=== PATIENT | female | born 1940 | race Caucasian/White ===

== ENCOUNTER 2016-07-10 18:34 | Emergency (ER) | payer MEDICARE ==
[~2016-07-10] VITALS: Ht 172.7 cm; Wt 100.0 kg
[~2016-07-10 18:34] MED LIST: AMLO2.5T PO; BECL8.7A6 IH; CYAN500T15 PO; FLUO20CA25 PO; FLUT16SP2 NS; GUAI600T2 PO; HYDR12.5 PO; INSU100I13 SUBQ; INSU100I18 SUBQ; LEVO100T6 PO; METF500T4 PO; OMEP40CA36 PO; RANI300C PO; SIMV20TA4 PO; VITAMIN D3
[2016-07-10 18:41] VITALS: BP 136/69; PULSE 90; RESP 16; O2SAT 96
[2016-07-10 19:06] LABS: BASOPHILS % (AUTO) 0.6 % (0-3); EOSINOPHILS % (AUTO) 6.8 % (0-5); MONOCYTES % (AUTO) 6.6 % (4-12); Mean Corpuscular Hemoglobin 25.6 pg (27.0-35.0); Mean Corpuscular Volume 78.9 fL (81-100); NEUTROPHILS % (AUTO) 56.5 % (40-74); Platelet Count 349 bil/L (150-400)
--- NOTE | 2016-07-10 19:46 | ED.REPORT ---
HPI-GI Bleed Date of Service Jul 10, 2016 ED Provider: Reid Alfaro MD A 75 year old female with a history of DM and anemia presents to the ED from Urgent Care with hematochezia onset 1700 yesterday. The patient has had four episodes of bright red, bloody stool since onset. She also reports lower abdominal pain during bowel movements. The patient normally has one BM per day. She denies other symptoms. Nursing Notes Stated Complaint: RECTAL BLEEDING Chief Complaint: Female Abdominal Pain Nursing Notes Reviewed: Yes Allergies: Coded Allergies: lisinopril (Verified Allergy, Unknown, cough, 07/10/16) Scheduled Amlodipine (Amlodipine) 2.5 Mg Tablet 2.5 MG PO DAILY Beclomethasone Dipropionate (Qvar) 8.7 Gm Aer.w.adap 2 PUFFS IH BID Fluoxetine (Fluoxetine) 20 Mg Capsule 20 MG PO AM Fluticasone Propionate (Flonase Nasal) 16 Gm [place].susp 1 SPRAY NS BID Hydrochlorothiazide (Hydrochlorothiazide) 12.5 Mg Capsule 12.5 MG PO DAILY Insulin Glargine (Lantus U100 Solostar Insulin Pen) 100 Unit/1 Ml Insuln.pen 25 UNIT SUBQ QPM-INSULIN Insulin Lispro (HumaLOG U100 Insulin Pen) 100 Unit/1 Ml Insuln.pen 1 UNIT SUBQ TID-INSULIN Blood Sugar Lispro Correction <151 0 units 151-175 1 unit 176-200 2 units 201-225 3 units 226-250 4 units 251-275 5 units 276-300 6 units 301-325 7 units 326-350 8 units 351-375 9 units 376-400 10 units >400 12 units Check blood sugars before meals and at bedtime. Use correction factor only before meals. Levothyroxine (Levothyroxine) 100 Mcg Tablet 100 MCG PO DAILY Metformin (Metformin) 500 Mg Tablet 500 MG PO BIDWM Omeprazole (Omeprazole) 40 Mg Capsule.dr 40 MG PO DAILY Ranitidine (Ranitidine) 300 Mg Capsule 300 MG PO HS Simvastatin (Simvastatin) 20 Mg Tablet 20 MG PO HS Miscellaneous Medications ([Vitamin D3]) Cyanocobalamin (Vitamin B-12) (B-12 Dots) 500 Mcg Tablet 500 MCG PO Guaifenesin (Mucinex) 600 Mg Tablet.er 600 MG PO General Time Seen by Provider: 19:45 Chief Complaint Chief Complaint: Stool bright red blood Hx Obtained From: Patient Arrived By: Walk-in Onset Occurred: Yesterday Context of Onset: Pain on BM Symptom Duration: Since onset Location: : Abdomen lower Quality: Painful Severity: Current: No pain currently Severity: Maximum: Moderate Associated with: Reports: Abdominal pain Pertinent Negative: Pt denies other symptoms Exacerbated by: Bowel movement Pertinent Negative: Relieved by nothing Immunizations: Unknown Recent Healthcare: Recent doctor visit Past Medical History Past Medical History Diabetes mellitus Anemia Smoking History Unknown if Ever Smoker Ambulatory Status Independent Review of Systems Constitutional: Denies: Fever Respiratory: Denies: Non-productive cough, Shortness of breath GI: Reports: Abdominal pain (Lower), Bloody/tarry stool, Hematochezia (x4), Denies: Vomiting Complete sys rev & neg: except as marked. Physical Exam Initial Vital Signs Vital Signs (First) Date Time Temp Pulse Resp B/P Pulse Ox O2 Delivery O2 Flow Rate FiO2 07/10/16 18:41 36.2 90 16 136/69 96 Room Air Initial VS: Reviewed Head / Eyes: Atraumatic, Normocephalic ENT: Conjunctiva normal, No scleral icterus Skin: Warm, Dry Neurologic: Alert, Oriented, Nonfocal Psychiatric: Mood/affect normal, Behavior normal, Normal thought content General/Constitutional: Awake, Alert Interpretation & Diagnostics Lab Results Interpretation Result Diagram: 07/10/16185407/10/161854 Test 07/10/16 18:55 White Blood Count 12.4th/mm3 (3.8-10.1) Red Blood Count 4.45mil/mm3 (3.90-5.20) Hemoglobin 11.4g/dL (12.0-15.6) Hematocrit 35.1% (35.0-46.0) Mean Corpuscular Volume 78.9fL (81-100) Mean Corpuscular Hemoglobin 25.6pg (27.0-35.0) Mean Corpuscular Hemoglobin Concent 32.5% (32.0-37.0) Red Cell Distribution Width 13.9% (12.3-15.4) Platelet Count 349bil/L (150-400) Neutrophils (%) (Auto) 56.5% (40-74) Lymphocytes (%) (Auto) 29.1% (14-46) Monocytes (%) (Auto) 6.6% (4-12) Eosinophils (%) (Auto) 6.8% (0-5) Basophils (%) (Auto) 0.6% (0-3) Sodium Level 134mEq/L (134-144) Potassium Level 4.4mEq/L (3.5-5.2) Chloride Level 97mEq/L (97-108) Carbon Dioxide Level 21mmol/L (18-29) Blood Urea Nitrogen 11mg/dL (8-27) Creatinine 1.00mg/dL (0.57-1.00) Estimat Glomerular Filtration Rate 77mL/min (>59) Glucose Level 152mg/dL (60-99) Calcium Level 9.8mg/dL (8.5-10.1) Total Bilirubin 0.3mg/dL (0.0-1.2) Aspartate Amino Transf (AST/SGOT) 24U/L (0-50) Alanine Aminotransferase (ALT/SGPT) 26U/L (0-32) Alkaline Phosphatase 91U/L (25-165) Total Protein 7.4g/dL (6.4-8.4) Albumin 4.0g/dL (3.4-5.0) Hold [place]onel Top Tube Received (Received) Re-Eval/Medical Decision Med Decision/Clinical Course Well appearing with report of minor lower GI bleeding. Normal VS, essentially normal hemoglobin and hematocrit. Left department prior to compeltion of evaluation. Source of Hx: Old records Re-Evaluation/Progress : Time of Eval: 21:26 Re-Evaluation/Progress Note: Patient left AMA while I was involved with a critical patient. Discharge & Departure Impression: Primary Impression: Rectal bleeding Disposition: AGAINST MEDICAL ADVICE Discharge Condition All VS Reviewed: Yes Referrals: Juanita Falk MD (PCP) Adalidibperez Attestation Portions of this note were transcribed by Yamila Rojas. I, Dr. Alfaro, personally performed the history, physical exam, and medical decision-making; I reviewed and confirmed the accuracy of the information in the transcribed note. Signed by: Marvel Arana, 07/10/2016, 21:55 copies to: Juanita Falk MD, Donald L MD Jul 10, 2016 19:46 YAMILA ROJAS Jul 10, 2016 19:50
[2016-09-01] MEDS ORDERED: CHOL5000 PO (08:35)
[2016-09-01] MEDS ORDERED: GLIP5POW MC (08:35)
[2016-09-01] MEDS ORDERED: METO25TA3 PO (08:35)
[2016-09-01] MEDS ORDERED: LEVO112T4 PO (08:35)
[2016-09-01] MEDS ORDERED: ALBU90AE IH (08:35)
[2016-09-01] MEDS ORDERED: CYAN500T53 SL (08:35)
[2016-09-01] MEDS ORDERED: FLUT10.62 IH (08:35)
[2016-09-01] MEDS ORDERED: FLUT9.9S NS (08:35)
[2016-09-01] MEDS ORDERED: PROM25TA14 PO (08:35)
== END 2016-07-10 21:25 | disposition left against medical advice (07) ==
LOC: SED 18:34
DX: K62.5 Hemorrhage of anus and rectum (principal); E11.9 Type 2 diabetes mellitus without complications; Z79.4 Long term (current) use of insulin; Z79.84 Long term (current) use of oral hypoglycemic drugs; Z88.8 Allergy status to other drugs, medicaments and biological substances

== ENCOUNTER 2016-07-13 17:27 | Emergency (ER) | payer MEDICARE ==
[~2016-07-13] VITALS: Ht 172.7 cm; Wt 100.0 kg
[2016-07-13 17:30] VITALS: BP 155/77; PULSE 88; RESP 15; O2SAT 96
--- NOTE | 2016-07-13 18:13 | ED.REPORT ---
HPI-GI Bleed Date of Service Jul 13, 2016 ED Provider: Dr. Reid Alfaro M.D. A 75 year old female with a history of DM, anemia, and polyps of the stomach and colon presents to the ED with hematochezia onset four days ago. The patient had several episodes of bright red, bloody stool at onset but has not had similar bleeding for three days. Associated symptoms include nausea and lightheadedness currently. The patient denies abdominal pain or other symptoms. She was seen in the ED three days ago with these symptoms but left AMA without a complete evaluation. The patient was then seen by her PCP today, who found guaiac positive stool present on rectal exam and referred her to the ED. The patient denies alcohol use or previous abdominal surgeries. She has recently been taking Aleve x2 every "couple of days" for back pain. Nursing Notes Stated Complaint: RECTAL BLEEDING Chief Complaint: Female Abdominal Pain Nursing Notes Reviewed: Yes Allergies: Coded Allergies: lisinopril (Verified Allergy, Unknown, cough, 07/10/16) Scheduled Amlodipine (Amlodipine) 2.5 Mg Tablet 2.5 MG PO DAILY Beclomethasone Dipropionate (Qvar) 8.7 Gm Aer.w.adap 2 PUFFS IH BID Fluoxetine (Fluoxetine) 20 Mg Capsule 20 MG PO AM Fluticasone Propionate (Flonase Nasal) 16 Gm [place].susp 1 SPRAY NS BID Hydrochlorothiazide (Hydrochlorothiazide) 12.5 Mg Capsule 12.5 MG PO DAILY Insulin Glargine (Lantus U100 Solostar Insulin Pen) 100 Unit/1 Ml Insuln.pen 25 UNIT SUBQ QPM-INSULIN Insulin Lispro (HumaLOG U100 Insulin Pen) 100 Unit/1 Ml Insuln.pen 1 UNIT SUBQ TID-INSULIN Blood Sugar Lispro Correction <151 0 units 151-175 1 unit 176-200 2 units 201-225 3 units 226-250 4 units 251-275 5 units 276-300 6 units 301-325 7 units 326-350 8 units 351-375 9 units 376-400 10 units >400 12 units Check blood sugars before meals and at bedtime. Use correction factor only before meals. Levothyroxine (Levothyroxine) 100 Mcg Tablet 100 MCG PO DAILY Metformin (Metformin) 500 Mg Tablet 500 MG PO BIDWM Omeprazole (Omeprazole) 40 Mg Capsule.dr 40 MG PO DAILY Ranitidine (Ranitidine) 300 Mg Capsule 300 MG PO HS Simvastatin (Simvastatin) 20 Mg Tablet 20 MG PO HS Miscellaneous Medications ([Vitamin D3]) Cyanocobalamin (Vitamin B-12) (B-12 Dots) 500 Mcg Tablet 500 MCG PO Guaifenesin (Mucinex) 600 Mg Tablet.er 600 MG PO General Time Seen by Provider: 18:13 Chief Complaint Chief Complaint: Stool bright red blood Hx Obtained From: Patient Arrived By: Walk-in Onset Occurred: 4 days ago Symptom Duration: 1 day Severity: Current: No pain currently Severity: Maximum: No pain Associated with: Denies: Abdominal pain, Fever Related History: Reports: Polyps, Denies: Recent abdominal surgery Immunizations: Unknown Recent Healthcare: Recent doctor visit Past Medical History Past Medical History Notes: EGD in 12/2012 indicated distal esophagitis, antral gastric erosions, and ulcerated polyp in gastric fundus. Past Medical History Diabetes mellitus type 2 Anemia Stomach and colon polyps Past Surgical History Endoscopies Bilateral knee replacements Smoking History Unknown if Ever Smoker Social History Alcohol Use: Denies alcohol use Ambulatory Status Independent Review of Systems Constitutional: Denies: Fever Respiratory: Denies: Non-productive cough, Shortness of breath GI: Reports: Bloody/tarry stool, Hematochezia, Nausea, Denies: Abdominal pain Neurologic: Reports: Lightheaded Complete sys rev & neg: except as marked. Physical Exam Physical Exam Notes: no othostatic changes on VS Initial Vital Signs Vital Signs (First) Date Time Temp Pulse Resp B/P Pulse Ox O2 Delivery O2 Flow Rate FiO2 07/13/16 17:30 36.6 88 15 155/77 96 Room Air Initial VS: Reviewed Head / Eyes: Atraumatic, Normocephalic ENT: Conjunctiva normal, No scleral icterus Neurologic: Alert, Oriented Psychiatric: Mood/affect normal, Behavior normal General/Constitutional: Awake, Alert Respiratory / Chest: Breath sounds NL, Breath sounds = bilat, No respiratory distress Cardiovascular: Heart rate NL, Regular rhythm Heart Sounds / Murmur: Positive: Systolic murmur present.. (III/, upper right sternal border) Abdomen: Soft, BS normoactive, No palpable mass Tenderness/Guarding/Rebound: Positive: Tender RUQ... No organomegaly Rectum / Perineum: Atraumatic, No mass Rectal for Blood: Positive: Blood - occult heme + Nontender Brown stool present in vault Skin Skin: Color NL, Warm, Dry Back: Full range of motion, No CVA tenderness Interpretation & Diagnostics US ABDOMEN: IMPRESSION: Cholelithiasis. No biliary dilation. Reportedly, negative sonographic Orantes sign. Transmitted to the ED by Radiologist Christin Estevez M.D at 07/14/2016 - 12:29:33 AM PDT Lab Results Interpretation Result Diagram: 07/13/16184907/13/16 185 Test 07/13/16 18:50 07/13/16 21:49 White Blood Count 14.6th/mm3 (3.8-10.1) Red Blood Count 4.45mil/mm3 (3.90-5.20) Hemoglobin 11.2g/dL (12.0-15.6) Hematocrit 34.9% (35.0-46.0) Mean Corpuscular Volume 78.4fL (81-100) Mean Corpuscular Hemoglobin 25.2pg (27.0-35.0) Mean Corpuscular Hemoglobin Concent 32.1% (32.0-37.0) Red Cell Distribution Width 13.8% (12.3-15.4) Platelet Count 361bil/L (150-400) Neutrophils (%) (Auto) 67.1% (40-74) Lymphocytes (%) (Auto) 22.0% (14-46) Monocytes (%) (Auto) 6.3% (4-12) Eosinophils (%) (Auto) 3.4% (0-5) Basophils (%) (Auto) 0.8% (0-3) Prothrombin Time 9.7sec (8.1-12.5) Prothromb Time International Ratio 0.91ratio Sodium Level 130mEq/L (134-144) Potassium Level 4.7mEq/L (3.5-5.2) Chloride Level 93mEq/L (97-108) Carbon Dioxide Level 19mmol/L (18-29) Blood Urea Nitrogen 17mg/dL (8-27) Creatinine 0.86mg/dL (0.57-1.00) Estimat Glomerular Filtration Rate 92mL/min (>59) Glucose Level 197mg/dL (60-99) Calcium Level 9.8mg/dL (8.5-10.1) Magnesium Level 1.6mg/dL (1.6-2.6) Total Bilirubin 0.3mg/dL (0.0-1.2) Aspartate Amino Transf (AST/SGOT) 25U/L (0-50) Alanine Aminotransferase (ALT/SGPT) 22U/L (0-32) Alkaline Phosphatase 85U/L (25-165) Total Protein 7.8g/dL (6.4-8.4) Albumin 4.0g/dL (3.4-5.0) Hold Urine Received (Received) CT Abd / Pelvis Interpretation IMPRESSION: 1. Cause of upper abdominal pain and tenderness is not appreciated. 2. There is a small to moderate-sized hiatal hernia. Bilateral renal cysts are present. The largest is on the right and measures 7 cm in diameter. 3. Multiple diverticula but no inflammation seen. The spine shows some degenerative change. There is some atherosclerotic calcification. Dictated by: Shyam Bowie M.D. on 07/13/2016 at 20:32 Study type: Abdominal CT IV contrast Interpretation / Wet Read by: Interpret - Radiologist Re-Eval/Medical Decision Source of Hx: Old records Re-Evaluation/Progress #1: Time of Eval: 19:32 Patient Status: Condition improved Re-Evaluation/Progress Note: Discussed with patient lab results and plan for CT. She agrees with plan for care and all questions were addressed. Re-Evaluation/Progress #2: Time of Eval: 20:44 Patient Status: Condition improved Re-Evaluation/Progress Note: Discussed with patient CT result with plan for GI consult. Rectal exam performed. Re-Evaluation/Progress #3: Time of Eval: 21:06 Patient Status: Condition improved Re-Evaluation/Progress Note: Discussed with patient GI consult with plan for US and subsequent discharge if negative. Follow-up and return to the ER instructions given. Patient agrees with plan for care and all questions were addressed. Re-Evaluation/Progress #4: Time of Eval: 23:24 Patient Status: Condition improved Re-Evaluation/Progress Note: Discussed US results with patient and her family. Consultation : Referral / Consult Name: Reid Rg MD Call Returned at: 20:54 Water Resource Project Manager: Will see in office, Agrees with eval, Agrees with plan Note: GI: Will see patient for EGD on 07/15 Counseled Regarding: Diagnosis, Lab results, Need for follow-up, When/why to return to ED Discharge & Departure Impression: Primary Impression: Gastrointestinal bleeding GI bleed type/associated pathology: unspecified gastrointestinal hemorrhage type Qualified Code: K92.2 - Gastrointestinal hemorrhage, unspecified Disposition: Home Discharge Condition All VS Reviewed: Yes Condition: Improved Additional Instructions: Your ER evaluation today included an interview, physical exam, labs, CT, and ultrasound. The ultrasound showed few small gallstones without any acute inflammation of the gallbladder. Your exam and labs are reassuring, there has not been a significant blood loss in the last 3 days. We have consulted the machinist apprentice wood Dr. Rg who plans an outpatient endoscopy for you on Wednesday (07/15). His office will call you tomorrow. Continue previous home medications. Call Dr Rg's office if you do not hear from them by tomorrow afternoon. Call us if you have any problems with this. Return to ED for abdominal pain, fevers, passing large amounts of blood rectally or vomiting blood. Referrals: Barrington Miller MD (PCP) Reid Rg MD Attestation Portions of this note were transcribed by Yamila Rojas. I, Dr. Alfaro, personally performed the history, physical exam, and medical decision-making; I reviewed and confirmed the accuracy of the information in the transcribed note. Signed by: Marvel Arana, 07/14/2016, 00:45 copies to: Barrington Miller MD; Reid Rg MD, Donald L MD Jul 13, 2016 18:13 YAMILA ROJAS Jul 13, 2016 18:24
[2016-07-13 18:52] VITALS: BP 135/58; PULSE 79; O2SAT 95
[2016-07-13 18:57] VITALS: BP 130/54; PULSE 88; O2SAT 94
[2016-07-13 19:00] VITALS: BP 130/42; PULSE 85; O2SAT 97
[2016-07-13 19:01] LABS: BASOPHILS % (AUTO) 0.8 % (0-3); EOSINOPHILS % (AUTO) 3.4 % (0-5); MONOCYTES % (AUTO) 6.3 % (4-12); Mean Corpuscular Hemoglobin 25.2 pg (27.0-35.0); Mean Corpuscular Volume 78.4 fL (81-100); NEUTROPHILS % (AUTO) 67.1 % (40-74); Platelet Count 361 bil/L (150-400)
[2016-07-13 19:18] LABS: INR 0.91 ratio
[2016-07-13 19:23] LABS: Magnesium 1.6 mg/dL (1.6-2.6)
[2016-07-13] MEDS ORDERED: Ondansetron 2 mg/mL 2 mL Inj IVPUSH ONE (19:50)
--- NOTE | 2016-07-13 20:40 | DRSVH ---
PROCEDURE: CT ABDOMEN AND PELVIS WITH CONTRAST ([id number]) INDICATIONS: upper abd pain and tenderness TECHNIQUE: After the administration of intravenous contrast, 5 mm thick sections acquired from the diaphragm to the symphysis. 5 mm coronal and sagittal reformats were acquired. For radiation dose reduction, the following was used: automated exposure control, adjustment of mA and/or kV according to patient siz e. COMPARISON: [facility] , CT, ABD/PELVIS W/CON ([facility]), 10/29/2009, 10:07. FINDINGS: Image quality: Excellent. ABDOMEN: Lung bases: Lung bases are clear. Heart size is normal. There is a small hiatal hernia. Solid organs: Liver and spleen are normal in size and enhancement. Gallbladder is within normal andersen its.. Biliary system is non dilated. Pancreas enhances normally. No adrenal nodules. Kidneys demo nstrate normal size and enhancement, without hydronephrosis. There are bilateral cysts in the kidneys . Peritoneum and bowel: Bowel loops demonstrate normal wall thickness and caliber. No free fluid or a ir. There is a normal appendix. Diverticula without diverticulitis are scattered throughout the colon . Nodes and vessels: No retroperitoneal or mesenteric adenopathy by size criteria. Aorta and inferior vena cava are normal in size. Miscellaneous: There is a small fatty umbilical hernia.. PELVIS: Genitourinary: Bladder wall thickness is normal. There is a 17 mm area of decreased attenuation in the right adnexa thought to be a cystic structure. No free fluid is seen. Structures of the sinuses o f doubtful clinical significance. Uterus is not enlarged. Miscellaneous: No inguinal hernias or adenopathy. Bones: No suspicious bony lesions. No vertebral body compression fractures. IMPRESSION: 1. Cause of upper abdominal pain and tenderness is not appreciated. 2. There is a small to moderate-sized hiatal hernia. Bilateral renal cysts are present. The largest i s on the right and measures 7 cm in diameter. 3. Multiple diverticula but no inflammation seen. The spine shows some degenerative change. There is some atherosclerotic calcification. Dictated by: Shyam Bowie M.D. on 07/13/2016 at 20:32 Approved by: Shyam Bowie M.D. on 07/13/2016 at 20:39
[2016-07-13] MEDS ORDERED: _Ondansetron ODT 4 mg Tablet PO PRN (21:10)
[2016-07-13 23:41] VITALS: BP 151/51; PULSE 68; RESP 18; O2SAT 95
--- NOTE | 2016-07-14 08:02 | DRSVH ---
PROCEDURE: US ABDOMEN, LIMITED ([id number]) INDICATIONS: RUQ tender- eval gallbladder TECHNIQUE: Real-time focused scanning was performed of the abdomen, with image documentation. COMPARISON: Abdomen ultrasound 11/29/2009 FINDINGS: Preliminary report by night patrol inspector radiology Study is limited to evaluation of the gallbladder. Gallbladder does contain dependent stones. Wall th ickness is normal at 2.3 mm. There is no pericholecystic free fluid and reported Orantes's sign is neg ative. The common hepatic duct is 2.7 mm, the common bile duct is 3.4 mm. IMPRESSION: 1. Cholelithiasis without evidence of cholecystitis. No ductal dilatation. Findings are concordant with the preliminary report Dictated by: Lev Isbell M.D. on 07/14/2016 at 7:58 Approved by: Lev Isbell M.D. on 07/14/2016 at 8:00
[2016-09-01] MEDS ORDERED: CYAN500T53 SL (08:35)
[2016-09-01] MEDS ORDERED: ALBU90AE IH (08:35)
[2016-09-01] MEDS ORDERED: PROM25TA14 PO (08:35)
[2016-09-01] MEDS ORDERED: LEVO112T4 PO (08:35)
[2016-09-01] MEDS ORDERED: METO25TA3 PO (08:35)
[2016-09-01] MEDS ORDERED: CHOL5000 PO (08:35)
[2016-09-01] MEDS ORDERED: FLUT9.9S NS (08:35)
[2016-09-01] MEDS ORDERED: FLUT10.62 IH (08:35)
[2016-09-01] MEDS ORDERED: GLIP5POW MC (08:35)
== END 2016-07-13 23:43 | disposition home or self-care (01) ==
LOC: SED 17:27
DX: K92.2 Gastrointestinal hemorrhage, unspecified (principal); E11.9 Type 2 diabetes mellitus without complications; Z79.4 Long term (current) use of insulin; Z79.84 Long term (current) use of oral hypoglycemic drugs; Z88.8 Allergy status to other drugs, medicaments and biological substances
CPT/HCPCS: 36415; 74177; 76705; 80053; 83735; 85025; 85610; 86850; 96374; 99284; J2405; Q9967

== ENCOUNTER 2016-07-15 14:17 | Day surgery (SDC) | payer MEDICARE ==
[~2016-07-15] VITALS: Ht 172.7 cm; Wt 100.0 kg
[~2016-07-15 14:17] MED LIST changes: +0.9% Sodium Chloride 1,000 ML IV PRN; +Sodium Chloride LOK Flush 10 mL Syringe IV PRN; +fentaNYL-PF 50 mCg/mL 2 mL Inj IVPUSH PRN
[2016-07-15 15:43] VITALS: BP 143/72; PULSE 72; RESP 16; O2SAT 98
[2016-07-15] MEDS ORDERED: ONDA4TAB9 PO (15:49)
[2016-07-15 17:49] VITALS: BP 100/45; PULSE 84; RESP 14; O2SAT 93
[2016-07-15 17:59] VITALS: BP 114/71; PULSE 74; RESP 16; O2SAT 93
[2016-07-15 18:09] VITALS: BP 111/68; PULSE 74; RESP 16; O2SAT 94
[2016-07-15 18:19] VITALS: BP 122/50; PULSE 74; RESP 16; O2SAT 97
--- NOTE | 2016-07-15 23:06 | ENDO ---
[address] [address] ENDOSCOPY PROCEDURE PATIENT: ELAINE ESCAMILLA : 1940 MR#: [id number] ADMIT: 07/15/2016 JOB ID: [id number] DATE: 07/15/2016 PROCEDURE: Esophagogastroduodenoscopy with biopsy. INDICATIONS: A 75-year-old female who has been seen in the ED on a couple of occasions for symptoms of upper abdominal pain, nausea. She had a mild leukocytosis. She had a mild anemia with a slightly decreased MCV. Liver chemistries are normal. The patient reports that she has longstanding tendency towards suboptimal bowel evacuation over the last year. She had EGD last performed in 2013. Her last colonoscopy was in September 2012 and revealed a sessile serrated adenoma. She had mild chronic inflammation on random biopsies at that time. Upper endoscopic evaluation is pursued today. EQUIPMENT: GIF H 180 J. SEDATION: 1. 4 mg Versed. 2. 75 mcg fentanyl. COMPLICATIONS: None identified. PROCEDURE INFORMATION: After the risks and benefits were explained, written and verbal informed consent was obtained. The patient was brought into the endoscopy suite and placed into the left lateral decubitus position. Sedation was achieved using the above-stated medications with the addition of oxygen via nasal cannula. The scope was introduced into the mouth through the bite block, and advanced under direct visualization to the second portion of the duodenum. The scope was slowly withdrawn to carefully examine the mucosa for any defects or lesions. Retroflexed views were accomplished in the stomach. The stomach was decompressed. The scope from removed the patient who tolerated the procedure well. FINDINGS: 1. Duodenum. No new or old blood. No ulceration and no source for symptoms identified. 2. Stomach: No ulcers, no outlet obstruction. No mass lesions. Minimal nonspecific gastropathy seen throughout. I did not see any polypoid structures as previously had been described at EGD. I did take random biopsy for exclusion of H. pylori or other pathology. Retroflexed views of the LES disclosed a small sliding hiatal hernia. 3. Esophagus: The squamocolumnar junction correlated with the top of the gastric folds. The GEJ was at about 40 cm from the incisors. No acute erosive changes. No strictures. No mass lesions. No significant pathology to account for the patient's ED visits. ENDOSCOPIC DIAGNOSES: 1. Subtle sliding hiatal hernia. 2. Minimal gastropathy. RECOMMENDATIONS: 1. Await histopathology. 2. I suspect the patient has an element of obstipation considering the sharp, fleeting nature of her upper abdominal pains. I have recommended a mineral oil enema this evening. I have then recommended two saline Fleet's enemas about 90 minutes apart tomorrow. She should then continue with daily MiraLAX moving forward. 3. Beyond that, the patient did report the appearance of some small amount of red blood per rectum as late as last Wednesday. She has a history of colon polyp defined at her last exam almost four years ago. Repeat colonoscopy will be arranged. 4. The patient did have an elevated white count and with the upper symptoms and nausea along with gallstones seen at the ultrasound, it is certainly possible that this could be related to biliary colic and a HIDA scan has additionally been ordered.
--- NOTE | 2016-07-17 11:06 | PATH ---
SURGICAL PATHOLOGY Attending Physician:Favio Clarke CASE STATUS: Signed Out PATIENT NAME: ELAINE ESCAMILLA PID: [id number] : 1940 DATE COLLECTED:07/15/2016 00:00 SPECIMEN: Gastric, Biopsy CLINICAL HISTORY: 1). GASTRIC BIOPSY FINAL DIAGNOSIS: Gastric Biopsy: Fragments of antral and fundic mucosa with hyperemia, but negative for significant inflammation. Negative for evidence of Helicobacter. Negative for intestinal metaplasia. Negative for dysplasia and malignancy. ICD10 R10.9 GROSS DESCRIPTION: The specimen is received in one formalin filled container labeled with the patient's name, sublabeled "gastric" and consists of 2 portions of tissue which aggregate to 0.2 x 0.2 x 0.2 CM. The specimen is entirely submitted in one cassette. 07/16/2016 [facility] ICD-9 CODES: CPT CODES: 1: 51780 Electronically Signed Out Reid Mares MD [facility] Pathology [facility] [address], [place] [address] Technical component performed at [facility], [facility] [address], [place], [address]
[2016-09-01] MEDS ORDERED: FLUT9.9S NS (08:35)
[2016-09-01] MEDS ORDERED: LEVO112T4 PO (08:35)
[2016-09-01] MEDS ORDERED: GLIP5POW MC (08:35)
[2016-09-01] MEDS ORDERED: CHOL5000 PO (08:35)
[2016-09-01] MEDS ORDERED: FLUT10.62 IH (08:35)
[2016-09-01] MEDS ORDERED: ALBU90AE IH (08:35)
[2016-09-01] MEDS ORDERED: CYAN500T53 SL (08:35)
[2016-09-01] MEDS ORDERED: METO25TA3 PO (08:35)
[2016-09-01] MEDS ORDERED: PROM25TA14 PO (08:35)
== END 2016-07-15 23:59 | disposition home or self-care (01) ==
LOC: END 14:17
PROVIDERS: ATTEND Internal Medicine Gastroenterology
DX: R10.10 Upper abdominal pain, unspecified (principal); K92.1 Melena; R11.0 Nausea; D64.9 Anemia, unspecified; Z86.010 Personal history of colon polyps; K44.9 Diaphragmatic hernia without obstruction or gangrene
CPT/HCPCS: 43239; G0500; J2250; J3010; J7030

== ENCOUNTER 2016-09-02 08:40 | Day surgery (SDC) | payer MEDICARE ==
[~2016-09-02] VITALS: Ht 172.7 cm; Wt 99.8 kg
[~2016-09-02 08:40] MED LIST changes: -0.9% Sodium Chloride 1,000 ML IV PRN; +0.9% Sodium Chloride 1,000 ML IV SCH; +ALBU90AE IH; -BECL8.7A6 IH; +CHOL5000 PO; -CYAN500T15 PO; +CYAN500T53 SL; +FLUT10.62 IH; -FLUT16SP2 NS; +FLUT9.9S NS; +GLIP5POW MC; -GUAI600T2 PO; -LEVO100T6 PO; +LEVO112T4 PO; +METO25TA3 PO; +PROM25TA14 PO; -RANI300C PO; -VITAMIN D3
[2016-09-02 09:10] VITALS: BP 138/62; PULSE 76; RESP 14; O2SAT 96
[2016-09-02 10:20] VITALS: BP 107/48; PULSE 73; RESP 16; O2SAT 99
[2016-09-02 10:30] VITALS: BP 110/42; PULSE 79; RESP 16; O2SAT 94
[2016-09-02 10:39] VITALS: BP 99/58; PULSE 86; RESP 16; O2SAT 95
--- NOTE | 2016-09-02 10:48 | ENDO ---
[address] [address] ENDOSCOPY PROCEDURE PATIENT: ELAINE ESCAMILLA : 1940 MR#: [id number] ADMIT: 09/02/2016 JOB ID: [id number] DATE: 09/02/2016 PRIMARY PROVIDER: Barrington Miller M.D. PROCEDURE: Colonoscopy with biopsy. INDICATIONS: A 75-year-old female with a history of microcytic mild anemia. She has a history of colon polyp. EGD was unremarkable. Colonoscopic examination is, therefore, pursued today. EQUIPMENT: PCF H 190 DL. SEDATION: 1. 5 mg Versed. 2. 100 mcg fentanyl. COMPLICATIONS: None identified. BOWEL PREPARATION: Fair at best. PROCEDURAL INFORMATION: After the risks and benefits were explained, written and verbal informed consent was obtained. The patient was brought into the endoscopy suite and placed into the left lateral decubitus position. Sedation was achieved using the above-stated medications with the addition of oxygen via nasal cannula. Digital rectal examination was accomplished. No significant pathology was identified apart from [id number] internal hemorrhoids. The scope was introduced into the rectum and advanced to the cecum as identified by the appendiceal orifice and ileocecal valve. The scope was slowly withdrawn to carefully examine the mucosa for any defects or lesions. Retroflexed views were avoided in the rectum. Multiple direct views were made through the dentate line for exclusion of pathology. The colon was decompressed. The scope removed from the patient who tolerated the procedure well. FINDINGS: The patient had extensive diverticulosis in the left colon. Challenging navigation through the rectosigmoid region. There was a possible mildly inflamed everted diverticulum at the rectosigmoid junction. This did not look classic for an adenoma. I, therefore, elected to not remove this by way of snare (it was perhaps somewhere in the neighborhood of 5-6 mm in size). We biopsied this for histopathologic analysis instead. I did not see any other significant vascular pathology. No other significant polyps or mass lesions. The terminal ileum was briefly interrogated. It appeared to be within normal limits. ENDOSCOPIC DIAGNOSES: 1. Diverticulosis. 2. Inflamed polypoid structure concerning for inverted diverticulum. 3. Hemorrhoids. RECOMMENDATIONS: 1. Await histopathology. 2. If adenomatous mucosa is identified, then a repeat complete colonoscopy within the next 6-9 months would be appropriate. 3. No obvious explanation for microcytic anemia identified today. Capsule endoscopy is, therefore, offered for the patient. 4. Continue bowel regimen for soft regular stools.
--- NOTE | 2016-09-03 10:31 | PATH ---
SURGICAL PATHOLOGY Attending Physician:Favio Clarke CASE STATUS: Signed Out PATIENT NAME: ELAINE ESCAMILLA PID: [id number] : 1940 DATE COLLECTED:09/02/2016 16:02 SPECIMEN: Colon, Biopsy CLINICAL HISTORY: 1. RECTAL-SIGMOID BX FINAL DIAGNOSIS: 1.BIOPSY, RECTOSIGMOID AREA: SINGLE FRAGMENT OF EDEMATOUS GRANULATION TISSUE WITH NO COLON MUCOSA IDENTIFIED. ICD10 K63.3 GROSS DESCRIPTION: The specimen is received in one formalin filled container labeled with the patient's name, sublabeled "recto-sigmoid" and consists of a 0.2 x 0.2 x 0.2 CM portion of tissue which is entirely submitted in one cassette. 09/02/2016 DAC MICRO DESCRIPTION: See diagnosis. ICD-9 CODES: CPT CODES: 1: 58643 Electronically Signed Out Reid Mares MD [facility] [address], [place] [address] Technical component performed at [facility], [address] [place] [address] Ave[address], [place], [address]
== END 2016-09-02 23:59 | disposition home or self-care (01) ==
LOC: END 08:40
PROVIDERS: ATTEND Internal Medicine Gastroenterology
DX: Z12.11 Encounter for screening for malignant neoplasm of colon (principal); K63.5 Polyp of colon; K57.30 Diverticulosis of large intestine without perforation or abscess without bleeding; K64.8 Other hemorrhoids; Z86.010 Personal history of colon polyps; D64.9 Anemia, unspecified; J45.909 Unspecified asthma, uncomplicated; E03.9 Hypothyroidism, unspecified; I10 Essential (primary) hypertension; I35.0 Nonrheumatic aortic (valve) stenosis; E78.5 Hyperlipidemia, unspecified; E11.40 Type 2 diabetes mellitus with diabetic neuropathy, unspecified; N39.46 Mixed incontinence; Q61.9 Cystic kidney disease, unspecified; Z79.51 Long term (current) use of inhaled steroids; Z79.4 Long term (current) use of insulin; Z79.84 Long term (current) use of oral hypoglycemic drugs
CPT/HCPCS: 45380; 99153; G0500; J7030